=== PATIENT | male | born 1970 | race Hispanic/Latino ===

== ENCOUNTER 2024-11-15 15:47 | Emergency (ER) | payer OTHER ==
[~2024-11-15] VITALS: Ht 165.1 cm; Wt 58.8 kg
[2024-11-15] MEDS: ONDANSETRON HCL INJ 2MG/ML 2ML 2 MG/ML VIAL IV STA (16:38)
[2024-11-15] MEDS: FAMOTIDINE 20 MG/2 ML VIAL IV STA (16:38)
[2024-11-15] MEDS: SODIUM CHLORIDE 0.9% 1000ML 1,000 ML IV ONE (16:38)
[2024-11-15] MEDS ORDERED: PEPCID20 MG PO (17:26)
[2024-11-15] MEDS ORDERED: ONDANSETRON ODT4 MG PO (17:26)
[2024-11-15 17:40] VITALS: PULSE 86; RESP 18; TEMP 98.1; O2SAT 99
== END 2024-11-15 17:43 | disposition home or self-care (01) ==
LOC: FSED 16:00
DX: R11.2 Nausea with vomiting, unspecified (principal); K52.9 Noninfective gastroenteritis and colitis, unspecified; R10.9 Unspecified abdominal pain; E86.0 Dehydration; E87.6 Hypokalemia; F17.210 Nicotine dependence, cigarettes, uncomplicated
CPT/HCPCS: 80053; 80307; 81003; 85025; 99283; J2405; J7030